=== PATIENT | female | born 1950 | race Caucasian/White ===

== ENCOUNTER 2017-04-25 08:48 | Emergency (ER) | payer MEDICARE ==
[~2017-04-25] VITALS: Ht 172.7 cm; Wt 94.0 kg
[~2017-04-25 08:48] MED LIST: ATOR10TA9 PO; CHOL10003 PO; LEVO50TA5 PO; MELO-184 PO; PANT40TA5 PO; ZOLP10TA5 PO
[2017-04-25 08:49] VITALS: BP 173/114
[2017-04-25] MEDS ORDERED: SODIUM CHLORIDE 0.9% 1,000 ML IV ONE (09:11)
[2017-04-25] MEDS ORDERED: HYDROmorphone 1 MG/ML, 1ML ONE ×2 (09:15→12:20)
[2017-04-25] MEDS ORDERED: ONDANSETRON 2MG/ML, 2ML ONE (09:15)
[2017-04-25] MEDS: HYDROmorphone 1 MG/ML, 1ML IVPush PRN ×2 (09:24→12:26)
[2017-04-25 09:28] LABS: PATH.CAST-FLAG NOT PRESENT; SPERM-FLAG NOT PRESENT; SRC-FLAG NOT PRESENT; XTAL-FLAG NOT PRESENT; YLC-FLAG NOT PRESENT
[2017-04-25] MEDS ORDERED: SODIUM CHLORIDE 0.9% 1,000ML IVBOLUS ONE (09:30)
[2017-04-25] MEDS ORDERED: ONDANSETRON 2MG/ML, 2ML IVPush ONE (09:30)
[2017-04-25] MEDS ORDERED: SODIUM CHLORIDE FLUSH 10ML SYR IVF ONE (09:30)
[2017-04-25 09:47] LABS: ASPARTATE AMINO TRANSFERASE 73 U/L (15-37); BLOOD UREA NITROGEN 12 mg/dL (7-18)
[2017-04-25] MEDS ORDERED: OMNIPAQUE 350 MG/ML, 100ML BOTTLE ONE (11:50)
[2017-04-25 11:52] LABS: PATH.CAST-FLAG NOT PRESENT; SPERM-FLAG NOT PRESENT; SRC-FLAG NOT PRESENT; XTAL-FLAG NOT PRESENT; YLC-FLAG NOT PRESENT
== END 2017-04-25 12:37 | disposition home or self-care (01) ==
LOC: ED 09:34
DX: N13.2 Hydronephrosis with renal and ureteral calculous obstruction (principal); R31.9 Hematuria, unspecified; E78.5 Hyperlipidemia, unspecified; K21.9 Gastro-esophageal reflux disease without esophagitis; Z88.0 Allergy status to penicillin; Z88.8 Allergy status to other drugs, medicaments and biological substances; Z88.5 Allergy status to narcotic agent
CPT/HCPCS: 36415; 74178; 80053; 81001; 83605; 83690; 85025; 87040; 87086; 96361; 96374; 96375; 96376; 99285; J1170; J2405; J7030; Q9967

== ENCOUNTER 2017-04-29 15:44 | Emergency (ER) | payer MEDICARE ==
[~2017-04-29] VITALS: Ht 172.7 cm; Wt 94.2 kg
[2017-04-29] MEDS ORDERED: ONDANSETRON 2MG/ML, 2ML IVPush ONE (16:30)
[2017-04-29] MEDS ORDERED: MORPHINE SULFATE 4 MG/ML, 1ML IVPush PRN (16:30)
[2017-04-29] MEDS ORDERED: SODIUM CHLORIDE FLUSH 10ML SYR IVF ONE (16:30)
[2017-04-29 17:00] LABS: BLOOD UREA NITROGEN 16 mg/dL (7-18)
[2017-04-29 17:03] LABS: ASPARTATE AMINO TRANSFERASE 65 U/L (15-37)
[2017-04-29] MEDS ORDERED: ONDANSETRON 2MG/ML, 2ML ONE (17:16)
[2017-04-29] MEDS ORDERED: MORPHINE SULFATE 4 MG/ML, 1ML ONE (17:16)
[2017-04-29] MEDS ORDERED: HYDROmorphone 1 MG/ML, 1ML IV ONE (17:30)
[2017-04-29] MEDS ORDERED: HYDROmorphone 1 MG/ML, 1ML ONE (17:30)
[2017-04-29 19:32] VITALS: BP 147/80
[2017-04-29] MEDS ORDERED: KETOROLAC 30 MG/1 ML ONE (19:39)
[2017-04-29] MEDS ORDERED: KETOROLAC 30 MG/1 ML IVPush ONE (20:00)
== END 2017-04-29 20:02 | disposition home or self-care (01) ==
LOC: ED 19:56
DX: N20.0 Calculus of kidney (principal); K21.9 Gastro-esophageal reflux disease without esophagitis; E78.00 Pure hypercholesterolemia, unspecified; E78.5 Hyperlipidemia, unspecified; Z90.49 Acquired absence of other specified parts of digestive tract
CPT/HCPCS: 36415; 74000; 76770; 80053; 81001; 83690; 85025; 93005; 96374; 96375; 99285; J1170; J1885; J2405

== ENCOUNTER → 2017-07-02 | Outpatient (CLI) | payer MEDICARE ==
[~2017-07-02] MED LIST changes: +CLOB15GE TP; +CYAN1TAB29 PO; +KETO10TA PO; +KRIL500C PO; +LEVO5TAB29 PO; +LISI-167 PO; -MELO-184 PO; +MELO15TA24 PO; +RANI150T8 PO; +VITA1CAP PO; +biotin PO
== END | disposition home or self-care (01) ==
LOC: CFH 14:33
PROVIDERS: ATTEND Urology
DX: N20.2 Calculus of kidney with calculus of ureter (principal); D35.02 Benign neoplasm of left adrenal gland; K57.30 Diverticulosis of large intestine without perforation or abscess without bleeding; K76.0 Fatty (change of) liver, not elsewhere classified; M51.37 Other intervertebral disc degeneration, lumbosacral region; M43.17 Spondylolisthesis, lumbosacral region; Z90.49 Acquired absence of other specified parts of digestive tract
CPT/HCPCS: 74176

== ENCOUNTER 2017-07-08 11:33 | Day surgery (SDC) | payer MEDICARE ==
[2017-07-07 08:53] VITALS: BP 114/79
[2017-07-07 09:50] LABS: ASPARTATE AMINO TRANSFERASE 40 U/L (15-37); BLOOD UREA NITROGEN 15 mg/dL (7-18)
[~2017-07-08] VITALS: Ht 172.7 cm; Wt 93.0 kg
[2017-07-08] MEDS ORDERED: LACTATED RINGERS 1,000 ML IV SCH (12:11)
[2017-07-08] MEDS ORDERED: LIDOCAINE 1%, 2ML SQ PRN (12:30)
[2017-07-08] MEDS ORDERED: NEOMY/POLYMYXIN B GU IRR. 1 ML IRRIG ONE (12:47)
[2017-07-08] MEDS ORDERED: MIDAZOLAM 1 MG/ML, 2ML ONE (13:39)
[2017-07-08] MEDS ORDERED: FENTANYL PF 100 MCG/2ML ONE ×2 (13:39)
[2017-07-08] MEDS ORDERED: DEXAMETHASONE 4 MG/ML, 1ML ONE (13:58)
[2017-07-08] MEDS ORDERED: PROPOFOL 10 MG/ML, 20ML ONE (13:58)
[2017-07-08] MEDS ORDERED: ONDANSETRON 2MG/ML, 2ML ONE (13:58)
[2017-07-08] MEDS ORDERED: CEFAZOLIN 1,000 MG ONE (13:58)
[2017-07-08] MEDS ORDERED: KETOROLAC 30 MG/1 ML ONE (13:58)
[2017-07-08] MEDS ORDERED: ONDANSETRON 2MG/ML, 2ML IVPush PRN (14:30)
[2017-07-08] MEDS ORDERED: FENTANYL PF 100 MCG/2ML IV PRN (14:30)
[2017-07-08] MEDS ORDERED: ACETAMINOPHEN 325 MG TABLET PO PRN (14:30)
[2017-07-08] MEDS ORDERED: MIDAZOLAM 1 MG/ML, 2ML IV PRN (14:30)
[2017-07-08] MEDS ORDERED: PROMETHAZINE 25 MG/ML, 1ML IV PRN (14:30)
[2017-07-08] MEDS ORDERED: HYDROmorphone 1 MG/ML, 1ML IV PRN (14:30)
[2017-07-08] MEDS ORDERED: OMNIPAQUE 350 MG/ML, 50 ML BOTTLE ONE (14:49)
[2017-07-08] MEDS ORDERED: OXYcodone/APAP 5/325MG TABLET PO PRN (16:00)
== END 2017-07-08 17:00 ==
LOC: OUT 11:33
PROVIDERS: ATTEND Urology
DX: N20.1 Calculus of ureter (principal); I10 Essential (primary) hypertension; Z88.0 Allergy status to penicillin
CPT/HCPCS: 36415; 52353; 74420; 80053; 93005; C1726; C1758; C1769; J0690; J1100; J1885; J2250; J2405; J2704; J3010; Q9967

== ENCOUNTER → 2018-04-23 | Outpatient (CLI) | payer MEDICARE ==
[~2018-04-23] MED LIST changes: +OMNIPAQUE 350 MG/ML, 100ML BOTTLE ONE; +RANI150T23 PO; -RANI150T8 PO
== END | disposition home or self-care (01) ==
LOC: CFH 10:50
PROVIDERS: ATTEND Family Medicine
DX: K57.30 Diverticulosis of large intestine without perforation or abscess without bleeding (principal); Z90.49 Acquired absence of other specified parts of digestive tract
CPT/HCPCS: 74177; Q9967

== ENCOUNTER 2018-12-17 10:42 | Emergency (ER) | payer MEDICARE ==
[~2018-12-17] VITALS: Ht 170.2 cm; Wt 86.6 kg
[~2018-12-17 10:42] MED LIST changes: -OMNIPAQUE 350 MG/ML, 100ML BOTTLE ONE
--- NOTE | 2018-12-17 11:02 | NUR ---
PARAPROFESSIONAL INTERPRETER: EVERT COLLECTED AND SENT TO LAB. PT REMAINS IN LOBBY AWAITING ROOM ASSIGNMENT. NAD NOTED. A&OX4. SITTING COMFORTABLY. REFUSES NEED FOR NAUSEA MEDICATION FROM TRIAGE ERP.
[2018-12-17 11:31] LABS: BASOPHILS # (AUTO) 0.08 x10^3/uL (0-0.1); BASOPHILS % (AUTO) 1 % (0-1); EOSINOPHILS # (AUTO) 0.13 x10^3/uL (0-0.4); EOSINOPHILS % (AUTO) 2 % (1-7); LYMPHOCYTES # (AUTO) 2.44 x10^3/uL (1-3.4); LYMPHOCYTES % (AUTO) 36 % (22-44); MD NO; MEAN CORPUSCULAR HEMOGLOBIN 29.5 pg (27.0-34.8); MEAN CORPUSCULAR HGB CONC 33.6 g/dL (32.4-35.8); MEAN CORPUSCULAR VOLUME 87.8 fL (80-100); MEAN PLATELET VOLUME 7.6 fL (7.4-10.4); MONOCYTES # (AUTO) 0.39 x10^3/uL (0.2-0.8); MONOCYTES % (AUTO) 6 % (2-9); NEUTROPHILS % (AUTO) 55 % (42-75); PLATELET COUNT 333 x10^3/uL (130-400); RED BLOOD COUNT 5.19 x10^6/uL (3.82-5.3); RED CELL DISTRIBUTION WIDTH 13.3 % (9.6-15.2)
[2018-12-17 11:43] LABS: MICROSCOPIC NOT IND
[2018-12-17 11:45] LABS: CULTURE INDICATED? NO
[2018-12-17 14:19] VITALS: BP 134/90
[2018-12-17 14:21] LABS: ALANINE AMINOTRANSFERASE 63 U/L (12-78); ALBUMIN 4.2 g/dL (3.4-5.0); ANION GAP 9 mmol/L (5-15); CALCIUM 9.7 mg/dL (8.5-10.1); CHLORIDE 106 mmol/L (98-107); CREATININE 0.79 mg/dL (0.55-1.02)
--- NOTE | 2018-12-17 14:21 | NUR ---
TASK RN: PT AMBULATED STEADILY TO ROOM FROM LOBBY WITH RN AND FRIEND; NAD NOTED. PT CO N/V/EPIGASTRIC AND LUQ ABD PAIN X 10 DAYS. SEEN IN [facility] 8 DAYS AGO, DX WITH PYLONEPHRITIS AND RX'D CIPRO. PT REPORTS THAT WHILE URINARY S/S HAVE IMPROVED, PAIN/N/V HAS WORSENED. PT REPORTS 3/10 PAIN, DENIES NEED FOR PAIN OR NAUSEA MEDICATIONS. HX OF GASTRITIS W/ BASELINE EPIGASTRIC PAIN. PT DENIES CP/SOB/DIARRHEA/BLOOD IN EMESIS OR STOOL/URINARY SYMPTOMS. BP/SPO2 MONITOR IN PLACE. FRIEND AT BEDSIDE. FRIEND/PT UPDATED TO POC (RESULTS/RECHECK)AND DEMONSTRATES UNDERSTANDING.
[2018-12-17 14:24] LABS: ALKALINE PHOSPHATASE 62 U/L (45-117); BILIRUBIN,TOTAL 0.6 mg/dL (0.2-1.0); TOTAL PROTEIN 7.9 g/dL (6.4-8.2)
--- NOTE | 2018-12-17 14:40 | NUR ---
MD TABARES AT BEDSIDE TO ASSESS PT
--- NOTE | 2018-12-17 14:56 | NUR ---
PT TO GET CT, THEN UP FOR RECHECK
[2018-12-17] MEDS ORDERED: ONDANSETRON ODT 4 MG PO ONE (16:30)
[2018-12-17] MEDS ORDERED: MAALOX/HYOSCYAMINE/LIDOCAINE 45 ML BTL ONE (16:30)
[2018-12-17] MEDS ORDERED: MAALOX/HYOSCYAMINE/LIDOCAINE 45 ML BTL PO ONE (16:30)
[2018-12-17] MEDS ORDERED: ONDANSETRON ODT 4 MG ONE (16:30)
--- NOTE | 2018-12-17 16:34 | NUR ---
TASK RN: DC EDUCATION PROVIDED, PT DEMONSTRATES UNDERSTANDING. PT AMBULATED STEADILY TO DC WITH RN.
== END 2018-12-17 16:36 | disposition home or self-care (01) ==
LOC: ED 16:19
DX: R10.32 Left lower quadrant pain (principal); R11.2 Nausea with vomiting, unspecified; I10 Essential (primary) hypertension; K21.9 Gastro-esophageal reflux disease without esophagitis; E78.00 Pure hypercholesterolemia, unspecified; E78.5 Hyperlipidemia, unspecified; E07.9 Disorder of thyroid, unspecified; Z90.49 Acquired absence of other specified parts of digestive tract; Z90.710 Acquired absence of both cervix and uterus; Z87.891 Personal history of nicotine dependence
CPT/HCPCS: 36415; 74176; 80053; 81003; 83690; 85025; 99284; Q0162

== ENCOUNTER → 2021-06-13 | Outpatient (CLI) | payer MEDICARE ==
[~2021-06-13] MED LIST changes: +ACET-1600 PO; +ALEN70TA77 PO; +ALENDRONATE PO; +BIOT25005 PO; +CALCIUM PO; +CHLO473M PO; +CHOL200052 PO; +CIPR250T27 PO; +DULO20CA45 PO; +EMPA25TA PO; +KRIL1CAP7 PO; +LEVO75TA PO; +MELA1TAB15 PO; +METF10007 PO; +METFORMIN PO; +METR500T PO; +MILK150C2 PO; -PANT40TA5 PO; +PANT40TA6 PO; +PITA2TAB2 PO; +RANI-467 PO; -RANI150T23 PO; +UBID100C41 PO; +calcium PO; +tums PO
[2021-06-13 11:02] LABS: CHLORIDE 109 mmol/L (98-107)
[2021-06-13 11:04] LABS: INTERNATIONAL NORMALIZED RATIO 0.96 (0.93-1.1); PROTHROMBIN TIME 10.3 Seconds (9.6-11.5)
[2021-06-13 11:08] LABS: ALANINE AMINOTRANSFERASE 105 U/L (12-78); ALKALINE PHOSPHATASE 94 U/L (45-117); ANION GAP 8 mmol/L (5-15); BASOPHILS % (AUTO) 2 % (0-1); BILIRUBIN,TOTAL 0.5 mg/dL (0.2-1.0); CALCIUM 9.4 mg/dL (8.5-10.1); CREATININE 0.69 mg/dL (0.55-1.02); EOSINOPHILS % (AUTO) 3 % (1-7); LYMPHOCYTES % (AUTO) 31 % (22-44); MEAN CORPUSCULAR HEMOGLOBIN 28.6 pg (27.0-34.8); MEAN CORPUSCULAR HGB CONC 33.3 g/dL (32.4-35.8); MEAN PLATELET VOLUME 7.7 fL (7.4-10.4); MONOCYTES % (AUTO) 7 % (2-9); NEUTROPHILS % (AUTO) 57 % (42-75); PLATELET COUNT 267 x10^3/uL (130-400); TOTAL PROTEIN 7.8 g/dL (6.4-8.2)
[2021-06-13 11:50] LABS: MICROSCOPIC INDICATED
== END | disposition home or self-care (01) ==
LOC: STAR 09:30
PROVIDERS: ATTEND Neurological Surgery
DX: Z01.810 Encounter for preprocedural cardiovascular examination (principal); Z01.811 Encounter for preprocedural respiratory examination; Z01.812 Encounter for preprocedural laboratory examination; M54.16 Radiculopathy, lumbar region; M43.16 Spondylolisthesis, lumbar region; M51.36 Other intervertebral disc degeneration, lumbar region; R79.1 Abnormal coagulation profile; R82.90 Unspecified abnormal findings in urine; R94.31 Abnormal electrocardiogram [ECG] [EKG]
CPT/HCPCS: 36415; 71046; 80053; 81001; 85025; 85610; 85730; 87077; 87086; 87186; 93005